=== PATIENT | male | born 1970 ===

== ENCOUNTER → 2020-08-11 12:55 | Outpatient (BNVA) | payer OTHER, SELFPAY | PROVIDERS: PCP Internal Medicine; Visit Provider Anesthesiology ==

== ENCOUNTER 2020-09-21 06:07 | Outpatient (REF) | payer OTHER, SELFPAY ==
--- NOTE | ~2020-09-21 | FL_ITS ---
EXAMINATION: XR FLUOROSCOPY WITH IMAGES CLINICAL INFORMATION: M47.27 - Other spondylosis with radiculopathy, lumbosacral region COMPARISON: None. TECHNIQUE: Fluoroscopy performed by Shaina Bryson NP. Fluoroscopy time: 0.7 minutes DAP: 4.2 Gycm2 Images: 3 FINDINGS: There are spinal needles overlying the right L4 and L5 neural foramen with contrast in the nerve sheaths. There is transforaminal epidural extension of contrast. No visible vascular communication. FL/FL guidance in treatment room IMPRESSION: Fluoroscopy for pain management procedures.
== END 2020-09-21 06:08 | disposition home or self-care (01) ==
LOC: HO.RADIR 06:07
PROVIDERS: Visit Provider Anesthesiology
DX: M47.27 Other spondylosis with radiculopathy, lumbosacral region (principal); M51.36 Other intervertebral disc degeneration, lumbar region
CPT/HCPCS: 64483; 64484; J3300; Q9967